=== PATIENT | male | born 1975 | race Two or more races ===

== ENCOUNTER 2024-08-16 11:21 | Emergency (ER) | payer MEDICAID, OTHER ==
[~2024-08-16] VITALS: Ht 172.7 cm; Wt 103.6 kg
--- NOTE | 2024-08-16 11:36 | ED.PDOC ---
Musculoskeletal HPI Comments HPI: Poor Historian. 49-year-old male presents to emergency room for evaluation of right knee pain status post mechanical slip and fall from a standing position last night at 8:30 a.m. in the bathroom. He just finished showering and the floor was wet and he slipped and landed on his right knee. Patient has been ambulating since then. Denies any other complaints. Denies any other symptoms. Past Medical History: Polio Past Surgical History: Pull your right heel surgery REVIEW OF SYSTEMS: CONSTITUTIONAL: Denies acute: fever, diaphoresis, chills, generalized weakness. HEAD: Denies acute: headache, photophobia Eyes: Denies acute: Double vision, vision loss, eye pain, eye discharge. EARS: Denies acute: tinnitus, hearing loss, ear discharge, ear pain, THROAT: Denies acute: sore throat, swelling, difficulty swallowing , pain with swallowing, change in voice. NECK: Denies acute: neck pain, neck swelling, stiff neck. HEART: Denies acute : chest pain, palpitations, LUNGS: Denies acute: SOB, wheezing, cough, hemoptysis ABDOMEN: Denies acute: abdominal pain, Nausea, Vomiting, diarrhea, melena , hematemesis, hematochezia SKIN: Denies acute: rash, redness, lesions, itchiness. EXTREMITIES: Denies acute: calf pain, numbness, tingling, weakness, denies pain in extremity. Denies acute: Low back pain. Neuro: Denies acute: focal neurological deficit, motor or sensory focal neurological deficit, tremors, seizure like activity, confusion, dizziness, change in mental status, loss of bowel or bladder function, cauda equina like symptoms. : Denies acute: dysuria, hematuria, flank pain, increase in urinary frequency. PSYCH: Denies acute: hallucination, suicidal ideation, homicidal ideation. PHYSICAL EXAM: General: ---mild-----acute distress, awake and alert. Head: normocephalic, atraumatic. Neck: supple, trachea is midline, no swelling. Throat: Normal phonation. Eyes:, no erythema, no purulent discharge, no proptosis, no icterus. Heart: regular rate, regular rhythm, no significant murmur appreciated. Lungs: no apparent respiratory distress, Able to speak in full sentences. No wheezing, no rhonchi, no crackles. No stridors Clear to auscultation bilaterally. Abdomen: non tender to palpation, non distended, soft, no guarding, no rebound, + bowel sounds. Neuro: Awake, Alert, oriented to name, self, situation, follows commands GCS=15. Speech is normal. Skin: no petechia, no purpura, no cyanosis, non-pale, not jaundice. Lower extremities: --no - Pitting edema no deformity, no calf TTP. Evaluation of the right knee the area of complaint.: No erythema, no apparent deformity. Patient has some generalized anterior knee pain. Patient is neurovascularly intact in the affected extremity. Pedal pulses are palpable sensory and motor are present. Patient ambulating independently in the ED. Patient has history of polio and has one extremity longer than the other. Makes eye contact. moves all four extremities. Face: no apparent facial droop. Ambulating in the ED independently. ED COURSE: Chief Complaint: Lower Extremity Time Seen by MD: 11:25 Reviewed Notes: Nurses Notes, Allergies Allergies: Coded Allergies: NO KNOWN ALLERGIES (Unverified , 08/16/24) Information Source: Patient Location: Right Was a procedure done? Was a procedure done?: No Differential Diagnosis EXT Differential Diagnosis: Deep Vein Thrombosis, Compartment Syndrome, Fracture, Sprain, Dislocation, Gout, DJD, Myocardial Infarction, Contusion, Strain, Septic, Neurovascular injury, Arthritis, Bursitis X-Ray, Labs, Meds, VS Vital Signs Date Time Temp Pulse Resp B/P (MAP) Pulse Ox O2 Delivery O2 Flow Rate FiO2 08/16/24 13:13 81 18 98 Room Air 08/16/24 13:13 97.7 81 18 145/81 (102) 98 97.7 08/16/24 11:27 98.1 89 18 156/88 (110) 97 98.1 Current Medications Medications (Trade) Dose Ordered Sig/Puma Route Start Time Stop Time Status Last Admin Acetaminophen/ Hydrocodone Bitart ([place] 5/325MG Tab) 1 tab ONCE ONCE PO 08/16/24 12:30 08/16/24 12:55 DC 08/16/24 13:04 [facility] [address] [facility] [address] Ph: [phone] DIAGNOSTIC IMAGING Diagnostic Imaging Report : [id number] Signed PATIENT: LANE HERNANDEZ ACCT: [id number] UNIT: [id number] : 1975 LOC: ER ROOM / BED: / AGE / SEX: 49 / M ADM STATUS: REG ER SERVICE 1132 ORDERING PHYSICIAN: ANA OVALLE DO PROCEDURE(s): RKN3 - R KNEE 3V XRAY REASON: fall injury ORDER NUMBER(s): [id number], ACCESSION NUMBER(s): [id number] CLINICAL INDICATION: Trauma TECHNIQUE: 3 radiographic views of the right knee were obtained. Comparison: None FINDINGS/IMPRESSION: Comminuted fracture of the patella. ATED BY: WARREN AL MD DICTATED DATE/TIME: 08/16/241214 SIGNED BY: WARREN AL MD SIGNED DATE/TIME: 08/16/241214 CC: Time of 1ST Reevaluation: 00:00 Reevaluation 1ST: Unchanged Patient Education/Counseling: Diagnosis, Treatment Family Education/Counseling: Other Comments Patient presented with the above HPI.------workup was initiated. patient was found with the above mentioned diagnosis. the following medications were ordered: please refer to order lists of meds and tests obtained by myself Dr. Ovalle. Patient ED course and VS have been stabilized. Patient has been reassessed in the ED and remained in a stable condition. Pertinent incidental findings were discussed with the patient and/or family. Patient/family voices understanding and is agreeable with plan. Patient has been observed in the ED adequate length of time to insure improvement/stability. Escalation of care considered: Consideration of escalation to observation or admission Orthopedic surgery was consulted Dr. Figueroa. He recommended knee immobilization and outpatient follow up on Monday in his clinic. Patient was given crutches as well. Patient was DISCHARGED home in a stable condition. All the reports of any imaging studies that were ordered by myself were reviewed by myself. Departure 1 Departure Time of Disposition: 12:26 Impression: Primary Impression: Patellar fracture Disposition: HOME / SELF CARE / HOMELESS Condition: Stable Additional Instructions: Additional instructions: You MUST follow-up with your primary care/family doctor in 1 to 2 days. If you are unable to see your primary care/family doctor, please return to our emergency room for re-assessment and re-evaluation in 1 to 2 days. Return to the emergency room here in our facility or to the nearest ER [facility] if your symptoms change or worsen. CONSULTATIONS: you MUST Follow-up for consultation as soon as possible with: -orthopedic surgeon Dr. Figueroa at our facility on Monday. Please call to confirm her appointment. You MUST call the consultants office yourself to make an appointment. You may need to arrange that through your insurance and/or your primary/family doctor. If you are unable to see the integration consultant in 1 to 2 days, you must return to our emergency room (or any other ER of your choice) for re-assessment and re- evaluation. Adequate fluid hydration. Below is a copy of your radiological report for follow up: [place] [address] Ph: [phone] DIAGNOSTIC IMAGING Diagnostic Imaging Report : [id number] Signed PATIENT: LANE HERNANDEZ ACCT: [id number] UNIT: [id number] : 1975 LOC: ER ROOM / BED: / AGE / SEX: 49 / M ADM STATUS: REG ER SERVICE 1132 ORDERING PHYSICIAN: ANA OVALLE DO PROCEDURE(s): RKN3 - R KNEE 3V XRAY REASON: fall injury ORDER NUMBER(s): [id number], ACCESSION NUMBER(s): [id number] CLINICAL INDICATION: Trauma TECHNIQUE: 3 radiographic views of the right knee were obtained. Comparison: None FINDINGS/IMPRESSION: Comminuted fracture of the patella. ATED BY: WARREN AL MD DICTATED DATE/TIME: 08/16/241214 SIGNED BY: WARREN AL MD SIGNED DATE/TIME: 08/16/241214 CC: Discharged With: Self Critical Care Note Critical Care Time?: No I personally scribed for ANA OVALLE DO ([email or web address]) on 08/16/24 at 12:34. Electronically submitted by Leobardo Hernandez ([email or web address]). ANA OVALLE DO August 16, 2024 11:36
--- NOTE | 2024-08-16 12:17 | DVH ---
CLINICAL INDICATION: Trauma TECHNIQUE: 3 radiographic views of the right knee were obtained. Comparison: None FINDINGS/IMPRESSION: Comminuted fracture of the patella.
[2024-08-16] MEDS: HYDROcodone-ACET 5/325MG TAB PO ONE (13:04)
[2024-08-16 13:13] VITALS: BP 145/81; PULSE 81; RESP 18; TEMP 97.7; O2SAT 98
== END 2024-08-16 13:15 | disposition home or self-care (01) ==
LOC: ER 11:21
DX: S82.041A Displaced comminuted fracture of right patella, initial encounter for closed fracture (principal); W01.0XXA Fall on same level from slipping, tripping and stumbling without subsequent striking against object, initial encounter; Y93.89 Activity, other specified; Y92.89 Other specified places as the place of occurrence of the external cause; Y99.8 Other external cause status
CPT/HCPCS: 29505; 73562

== ENCOUNTER → 2024-10-28 | Day surgery (SDC) | payer MEDICAID ==
[2024-10-25 10:55] LABS: Hematocrit 49.1 % (41.0-53.0); Hemoglobin 16.9 g/dL (13.5-17.5); Mean Corpuscular Hemoglobin 32.9 pg (28.0-32.0); Mean Corpuscular Volume 95.5 fL (80.0-100.0); Nucleated Red Blood Cells % 0.2 %
[2024-10-25 11:11] LABS: Urine Protein, UAD Negative (Negative)
[2024-10-25 11:14] LABS: INR 1.01 (0.9-1.15); Partial Thromboplastin Time 27.1 SEC (24.5-34.5); Prothrombin Time 10.7 sec (9.3-11.8)
[2024-10-25 11:18] LABS: Alkaline Phosphatase 62 U/L (46-116); Anion Gap 9 (5-15); BUN/Creatinine Ratio 22.2 (10.0-20.0); Blood Urea Nitrogen 14 mg/dL (9-23); Carbon Dioxide 28 mmol/L (20-31); Chloride 102 mmol/L (98-107); Glucose 94 mg/dL (74-106); Potassium 4.4 mmol/L (3.5-5.1); Sodium 139 mmol/L (136-145); Total Protein 7.5 g/dL (5.7-8.2)
[2024-10-25 11:19] LABS: Bilirubin, Total 0.6 mg/dL (0.2-1.0)
[2024-10-25 11:20] LABS: Alanine Aminotransferase 52 U/L (7-40); Albumin 4.9 g/dL (3.2-4.8)
[2024-10-25 11:47] LABS: Calcium 9.3 mg/dL (8.7-10.4)
[~2024-10-28] VITALS: Ht 170.2 cm; Wt 99.8 kg
[~2024-10-28] MED LIST: BUPIVACAINE HCL 0.25% P/F 10 ML VIAL ONE; CEFEPIME 1GM/ 50ML 0 ML IV ONE; FLUMAZENIL 0.1 MG/ML INJ 10ML MDV IV PRN; GLYCOPYRROLATE 0.2 MG/ML 1ML VIAL ONE; HYDROmorphone HCL 2 MG/ML VL/or syr IV PRN; KETAMINE 50mg/ML 1ml syringe ONE; KETOROLAC TROMETH 30 MG/ML 1ML VIAL ONE; LIDOCAINE 2% (LOCAL ANESTH.) PF 5ml SDV ONE; MULT-1018 OR; NALOXONE HCL 0.4 MG/ML VIAL IV PRN; ONDANSETRON HCL 4 MG/2 ML VIAL IV PRN; ONDANSETRON HCL 4 MG/2 ML VIAL ONE; PROPOFOL 10 MG/ML 20 ML IV ONE; TRANEXAMIC ACID 0 ML ONE; ceFAZolin 2 GM/D5W50ml 50 ML IV ONE; fentaNYL CITRATE 100 MCG/2 ML VL IV PRN; hydrALAZINE HCL 20 MG/ML VL IV PRN
[2024-10-28] MEDS: ACETAMINOPHEN IV 1000 MG/100ML (10MG/ML) IV ONE (10:15)
[2024-10-28] MEDS: CELECOXIB 100 MG CAP PO ONE (10:17)
[2024-10-28] MEDS: GABAPENTIN 300 MG CAP PO ONE (10:17)
[2024-10-28 11:23] VITALS: TEMP 97; O2SAT 100
--- NOTE | 2024-10-28 12:40 | DVH ---
C-ARM FLUOROSCOPY: PROCEDURE: Right patella ORIF FLUOROSCOPY TIME: 18.4 seconds DAP: 0.43 mgy FINDINGS: Spot intraoperative C arm radiographs demonstrating right patella ORIF. IMPRESSION: Please refer to surgical report for detailed findings.
[2024-10-28 14:15] VITALS: BP 126/85; PULSE 74; RESP 17; O2SAT 99
--- NOTE | 2024-10-29 08:08 | DVHOP2 ---
Operative Report - 2 Report Details Date: 10/28/24 Preop Diagnosis: Right patella fracture Postop Diagnosis: Right patella fracture Surgeon: Raul Figueroa MD Lead Portfolio Manager: Ernesto ANGELES Anesthesiologist: Andrew ANGULO Anesthesia: Regional Implant: [place] Patella Plate Consent: The patient was informed of the risks and benefits of the procedure. These include but are not limited to complications of anesthesia, postoperative infection, incomplete relief of symptoms, recurrence of symptoms, damage to blood vessels, nerves and tendons, deep venous thrombosis, pulmonary embolism and possible need for repeat surgery in the future. Estimated Blood Loss: 5 cc Name of Procedure Performed Open reduction internal fixation of right patella fracture, intraop fluoroscopy Procedure Details Procedure Details: After obtaining informed consent, the patient was brought to the operating room and placed supine on the operating table. General anesthesia was induced, and all bony prominences were padded. A well-padded tourniquet was applied to the proximal thigh but was not inflated initially. The operative leg was prepped and draped in standard sterile fashion. A longitudinal midline incision was made over the anterior aspect of the knee, centered over the patella. Dissection was carried through the subcutaneous tissue, and full-thickness flaps were elevated medially and laterally to expose the patella. The fracture was visualized and noted to be comminuted. Hematoma and debris were evacuated. Fracture fragments were mobilized and anatomically reduced under direct visualization. Reduction was held provisionally with pointed reduction clamps and confirmed both visually and fluoroscopically. Once an anatomic reduction was achieved, internal fixation was performed using a pre-contoured low-profile anterior patellar plate. The plate was applied over the anterior surface of the patella, and fixed with locking screws placed superiorly and inferiorly across fracture fragments. We then did a krackow stitch from plate to patella tendon and a locked stitch at quadriceps Fixation was confirmed to be stable under passive range of motion from 0 to 90 degrees. Fluoroscopy was used to confirm reduction and hardware placement in both AP and lateral views. Final images were saved. Copious irrigation was performed with normal saline. Hemostasis was confirmed. The extensor retinaculum and paratenon were reapproximated using absorbable suture. Subcutaneous tissue was closed with 2-0 Vicryl, and skin was closed with 3-0 Monocryl in a subcuticular fashion. Sterile dressing was applied. A hinged knee brace was applied and locked in extension. The patient was awoken from anesthesia and transferred to recovery in stable condition. Condition Good Disposition Home RAUL FIGUEROA MD Oct 29, 2024 08:08
== END | disposition home or self-care (01) ==
LOC: SUR 09:10
PROVIDERS: ATTEND Orthopaedic Surgery Adult Reconstructive Orthopaedic Surgery
DX: S82.001A Unspecified fracture of right patella, initial encounter for closed fracture (principal); Z79.899 Other long term (current) drug therapy; X58.XXXA Exposure to other specified factors, initial encounter; Y93.89 Activity, other specified; Y92.89 Other specified places as the place of occurrence of the external cause; Y99.8 Other external cause status
CPT/HCPCS: 27524; 36415; 64454; 73560; 80053; 81001; 85025; 85610; 85730; C1776; J0169; J0690; J1100; J1885; J2003; J2405; J2704; J3490; 76000; J0131